=== PATIENT | female | born 1990 | race Two or more races ===

== ENCOUNTER 2024-01-22 14:25 | Outpatient (CLI) | payer OTHER | END 2024-01-22 14:26 | disposition home or self-care (01) | LOC: PRENATAL 14:25 | PROVIDERS: ATTEND Obstetrics & Gynecology Maternal & Fetal Medicine | DX: O36.80X0 Pregnancy with inconclusive fetal viability, not applicable or unspecified (principal); Z36.82 Encounter for antenatal screening for nuchal translucency; Z36.9 Encounter for antenatal screening, unspecified; Z3A.14 14 weeks gestation of pregnancy ==

== ENCOUNTER → 2024-03-03 08:15 | Outpatient (CLI) | payer OTHER | END | disposition home or self-care (01) | LOC: PRENATAL 08:15 | PROVIDERS: ATTEND Obstetrics & Gynecology Maternal & Fetal Medicine | DX: O35.3XX0 Maternal care for (suspected) damage to fetus from viral disease in mother, not applicable or unspecified (principal); O44.00 Complete placenta previa NOS or without hemorrhage, unspecified trimester; Z3A.20 20 weeks gestation of pregnancy ==

== ENCOUNTER 2024-07-18 13:45 | Inpatient (IN) | payer OTHER ==
[~2024-07-18] VITALS: Ht 172.7 cm; Wt 81.2 kg
[2024-07-26] VITALS (9 sets, daily range): BP systolic 83–135; BP diastolic 52–78
[2024-07-26] MEDS ORDERED: MORPHINE SULFATE 4 MG/ML CARTRIDGE IV ONE ×2 (00:30→04:15)
[2024-07-26] MEDS ORDERED: RINGERS SOLUTION,LACTATED 1,000 ML IV SCH (00:30)
[2024-07-26] MEDS ORDERED: PRENATAL TABLE1 EAC1 PO (00:38)
[2024-07-26 00:49] LABS: HEMATOCRIT 34.7 % (36.0-45.00); HEMOGLOBIN 11.4 g/dL (12.0-15.00); MEAN CELL VOLUME 82.5 fL (80.00-100.00); MEAN CORPUSCULAR HEMOGLOBIN 27.1 pg (27.00-32.0); MEAN CORPUSCULAR HGB CONC 32.9 g/dl (32.0-36.0); PLATELET COUNT 168 K/uL (150-450); RED BLOOD COUNT 4.21 M/uL (4.00-6.00); RED CELL DISTRIBUTION WIDTH 14.7 % (11.5-14.5); URINE APPEARANCE Cloudy; URINE BILIRRUBIN Negative (NEGATIVE); URINE BLOOD Large; URINE COLOR Yellow; URINE GLUCOSE Negative (NEGATIVE); URINE KETONE Negative (NEGATIVE); URINE LEUKOCYTE Large; URINE NITRATE Negative; URINE PROTEIN Negative (NEGATIVE); URINE UROBILINOGEN 0.2 E.U./dl
[2024-07-26 00:52] LABS: URINE BACTERIA 2587.5 uL (0.0-1933); URINE EPITHELIAL CELLS 93.8 uL (0.0-38.8); URINE RBC 4.7 uL (0.0-20.8); URINE WBC 373.7 uL (0.0-23.2)
[2024-07-26 01:03] LABS: URINE CAST 0.14 uL (0.0-1.40)
[2024-07-26 01:16] LABS: PARTIAL THROMBOPLASTIN TIME 25.6 SECONDS (22.0-34.0); PROTHROMBIN TIME 10.9 SECONDS (9.0-11.5)
[2024-07-26 01:20] LABS: ALBUMIN 2.5 gm/dL (3.4-5.0); BILIRUBIN TOTAL 0.3 mg/dL (0.3-1.2); CALCIUM 8.7 mg/dL (8.5-10.1); CREATININE SERUM 0.41 mg/dL (0.55-1.02); GFR 178.66; GLOBULINA 3.6 G/DL (2.4-3.5); POTASSIUM 3.1 mEq/L (3.5-5.1); TOTAL PROTEIN 6.1 gm/dL (6.4-8.2)
[2024-07-26] MEDS ORDERED: OXYTOCIN 500 ML IV SCH (10:45)
[2024-07-26] MEDS ORDERED: ERYTHROMYCIN BASE OPHT 1GM EACH TUBE OP ONE ×2 (13:31→15:30)
[2024-07-26] MEDS ORDERED: OXYTOCIN 20 UNITS/1000ML RL PIGGYBAG IV ONE (13:31)
[2024-07-26] MEDS ORDERED: LIDOCAINE HCL 1% 10ML VIAL ONE (13:32)
[2024-07-26] MEDS ORDERED: CHLORHEXIDINE GLUCONATE 120 ML BOTTLE TOP ONE ×2 (13:32→15:15)
[2024-07-26] MEDS ORDERED: ACETAMINOPHEN 500 MG GEL..CAP PO PRN (15:15)
[2024-07-26] MEDS ORDERED: OXYTOCIN 1,000 ML IV SCH (15:15)
[2024-07-27 00:12] VITALS: BP 90/60
[2024-07-27 07:25] LABS: HEMATOCRIT 25.5 % (36.0-45.00); MEAN CELL VOLUME 81.4 fL (80.00-100.00); MEAN CORPUSCULAR HGB CONC 33.9 g/dl (32.0-36.0); RED BLOOD COUNT 3.14 M/uL (4.00-6.00); RED CELL DISTRIBUTION WIDTH 15.2 % (11.5-14.5)
[2024-07-27 07:44] LABS: MEAN CORPUSCULAR HEMOGLOBIN 27.3 pg (27.00-32.0)
[2024-07-27 07:53] LABS: PLATELET COUNT 135 K/uL (150-450)
[2024-07-27 07:54] LABS: HEMOGLOBIN 8.6 g/dL (12.0-15.00)
[2024-07-27 08:01] VITALS: BP 99/60
[2024-07-27] MEDS ORDERED: PNV,CALCIUM 72/IRON/FOLIC ACID 1 TAB TABLET PO SCH (09:00)
[2024-07-27] MEDS ORDERED: IRON FUM,PS/FOLIC/BCOMP,C NO.9 1 CAP CAPSULE PO NR (12:00)
[2024-07-27 16:00] VITALS: BP 94/60
[2024-07-28] VITALS: BP 93/55
[2024-07-28 04:03] LABS: HEMATOCRIT 24.4 % (36.0-45.00); MEAN CELL VOLUME 81.9 fL (80.00-100.00); MEAN CORPUSCULAR HGB CONC 33.9 g/dl (32.0-36.0); PLATELET COUNT 138 K/uL (150-450); RED BLOOD COUNT 2.98 M/uL (4.00-6.00); RED CELL DISTRIBUTION WIDTH 15.3 % (11.5-14.5)
[2024-07-28 04:04] LABS: HEMOGLOBIN 8.3 g/dL (12.0-15.00); MEAN CORPUSCULAR HEMOGLOBIN 27.8 pg (27.00-32.0)
[2024-07-28] MEDS ORDERED: FUSION PLUS CA1 EACH PO (07:34)
[2024-07-28 08:31] VITALS: BP 90/63
[2024-07-28] MEDS ORDERED: IRON FUM,PS/FOLIC/BCOMP,C NO.9 1 CAP CAPSULE PO SCH (09:00)
== END 2024-07-28 15:21 | disposition home or self-care (01) | DRG 807 ==
LOC: LDR 07-26 00:22 → OB/GYN 07-26 15:32 → LDR 07-27 13:45 → OB/GYN 07-28 15:21
PROVIDERS: Obstetrics & Gynecology; ADMIT Obstetrics & Gynecology; ATTEND Obstetrics & Gynecology
PROC: 10E0XZZ Delivery of Products of Conception, External Approach (ICD-10-PCS; principal; 2024-07-26)
PROC: 0UQMXZZ Repair Vulva, External Approach (ICD-10-PCS; 2024-07-26)
PROC: 4A1HXCZ Monitoring of Products of Conception, Cardiac Rate, External Approach (ICD-10-PCS; 2024-07-26)
DX: O70.0 First degree perineal laceration during delivery (principal); Z37.0 Single live birth; Z3A.39 39 weeks gestation of pregnancy